=== PATIENT | male | born 1975 | race Caucasian/White ===

== ENCOUNTER 2025-07-29 03:18 | Observation (INO) ==
[2025-07-29] MEDS ORDERED: chlordiazePOXIDE ALCOHOL WITHDRAWL 50MG PO STA (03:32)
--- NOTE | 2025-07-29 03:37 | Emergency Department Note ---
History of Present Illness General Chief complaint: Alcohol Withdrawal Stated complaint: QUIT DRINKING, ALCOHOL WITHDRAWAL Time Seen by Provider: 07/29/25 03:22 History of Present Illness This 49-year-old male with history of alcoholism presents ER requesting detox. Patient complains of feeling shaky cannot sleep mood changes and diarrhea. He would like to be medically admitted. Sprio has worked well for him in the past. He did restart his AA meetings. Last drink was on the . Patient denies chest pain, dyspnea, abdominal pain. Home Medications Medication Instructions Recorded Confirmed Type aripiprazole 2 mg tablet 2 mg PO QAM 10/12/18 05/06/19 History desvenlafaxine succinate 100 mg 100 mg PO QAM 10/12/18 05/06/19 History tablet,extended release 24 hr hydroxyzine pamoate 25 mg capsule 25 mg PO BID PRN Anxiety 10/12/18 05/06/19 History mirtazapine 15 mg tablet 15 mg PO BID PRN Anxiety 10/12/18 05/06/19 History pantoprazole 40 mg tablet,delayed 40 mg PO QAM 10/12/18 05/06/19 History release chlordiazepoxide HCl 25 mg capsule See Rx Instructions .Route 05/06/19 Rx .COMPLEX PRN anxiety #20 caps Allergies Allergy/AdvReac Type Severity Reaction Status Date / Time No Known Allergies Allergy Unverified 05/06/19 03:55 Past Med/Surg History Problem List Alcohol withdrawal (Acute) Alcohol abuse (Acute) Medical History (Updated 07/29/25 @ 03:37 by Yumi Woodall PA-C) Barretts esophagus GERD (gastroesophageal reflux disease) Depression Anxiety Asthma childhood, no issues now Alcoholism Surgical History History of surgery fistulotomy Hx of vasectomy History of left inguinal hernia repair History of esophagogastroduodenoscopy (EGD) History of wisdom tooth extraction Family History Grandfather (Maternal) No problems noted. Grandfather (Paternal) Lung cancer Myocardial infarction Hypertension Heart disease Other No family history of adverse response to anesthesia Denies family history of Ovarian cancer Prostate cancer Diabetes Breast cancer Colorectal cancer Stroke Social History Smoking Status: Current every day smoker Tobacco Type: Cigarettes Age Started Using Tobacco: 15; packs per day: 1; Cigarettes Per Day: 20 a day; Second Hand Exposure: Yes (father smoked, smokes); Do You Dip or Chew Tobacco: No; Hx Alcohol Use: No Hx Substance Use: No Preferred Language: Vietnamese Communication Ability: Effective Visual Impairment: No Limitations Hearing Ability: Normal Web Art Director Required: No Beliefs That Will Affect Care: None marital status: Current Living Situation: Spouse current occupational status: employed current occupation: [employer] Feels Safe at Home: Yes Childhood Exposure to Second-Hand Smoke: Yes Assistive Devices: None Review of Systems A total of 10 systems reviewed and were otherwise negative Physical Exam Vital Signs Vital Signs - 24 hr 07/29/25 03:26 07/29/25 03:39 07/29/25 03:42 Temperature 36.5 C Temperature Source Temporal Artery Scan Pulse Rate 118 H 110 H Pulse Rate [Apical] 108 H Pulse Rhythm Pulse Rhythm [Apical] Regular Pulse Strength [Apical] Normal Respiratory Rate 18 18 Respiratory Effort / Characteristics Non-Labored Non-Labored Spontaneous Respiratory Depth Normal Normal Respiratory Pattern Regular Blood Pressure 167/99 H Blood Pressure [Left Arm] 147/98 H Blood Pressure Mean 121 Blood Pressure Mean [Left Arm] 114 Pulse Oximetry 97 98 Oxygen Delivery Method Room Air Room Air Sepsis Recent Fever Within 48 Hours No Sepsis New/Unexplained Change in Mental Status No Sepsis Action Taken by Nursing No Action Required 07/29/25 03:42 Temperature Temperature Source Pulse Rate 108 H Pulse Rate [Apical] Pulse Rhythm Regular Pulse Rhythm [Apical] Pulse Strength [Apical] Respiratory Rate 18 Respiratory Effort / Characteristics Respiratory Depth Respiratory Pattern Blood Pressure Blood Pressure [Left Arm] Blood Pressure Mean Blood Pressure Mean [Left Arm] Pulse Oximetry 98 Oxygen Delivery Method Room Air Sepsis Recent Fever Within 48 Hours Sepsis New/Unexplained Change in Mental Status Sepsis Action Taken by Nursing VITALS: Vitals are noted on the nurse's note and reviewed by myself. Vital signs stable. GENERAL: Pleasant gentleman mildly tremulous, in no acute distress, nondiaphoretic, well-developed well-nourished. SKIN: Capillary reflex less than 2 seconds. HEENT: Normocephalic. PERRLA. EOMI. Nares patent. Mucous membranes moist. Neck is supple without nuchal rigidity. HEART: Mildly tachycardic rate and rhythm LUNGS: Clear to auscultation bilaterally without wheezes, rales or rhonchi. No retractions or accessory muscle use. ABDOMEN: Positive bowel sounds x 4. Normal tympanic percussion. Soft, nontender, without masses or organomegaly. Dawson sign negative. No guarding or rebound tenderness. no CVA tenderness MUSCULOSKELETAL: No gross musculoskeletal defects. NEURO: Patient was alert and oriented to person place and time. No focal neurological deficits. Course Administered Medications Chlordiazepoxide HCl (Chlordiazepoxide Hcl 25 Mg Cap) 50 mg PO Q6H [facility]; Protocol Stop: 07/29/25 21:46 Last Admin: 07/29/25 03:47 Dose: 50 mg Documented By: CLAUDIO Discontinued Medications Lactated Ringer's (Lr) 1,000 mls @ 999 mls/hr IV .Q1H1M ONE Stop: 07/29/25 04:32 Last Infusion: 07/29/25 04:29 Dose: Infused Documented By: Admin: 07/29/25 03:47 Dose: 999 mls/hr Documented By: CLAUDIO Thiamine HCl 100 mg/ Syringe 10 mls @ 2 mls/min IV NOW STA Stop: 07/29/25 03:42 Last Admin: 07/29/25 04:19 Dose: 2 mls/min Documented By: CLAUDIO Folic Acid 1 mg/ Syringe 10 mls @ 5 mls/min IV NOW STA Stop: 07/29/25 03:39 Last Admin: 07/29/25 04:19 Dose: 5 mls/min Documented By: CLAUDIO Multivitamins (Multivitamin Tab) 1 tab PO NOW STA Stop: 07/29/25 03:39 Last Admin: 07/29/25 04:18 Dose: 1 tab Documented By: CLAUDIO Medical Decision Making Medical Records Attestation: I reviewed the patient's medical records. Home Medications Current Medication List: was personally reviewed by me Laboratory Data Attestation: I reviewed the patient's lab results. 07/29/25 03:38 07/29/25 03:38 Lab Results 07/29/25 Range/Units 03:38 WBC 11.18 H (4.8-10.8) K/ul RBC 5.45 (4.70-6.10) M/uL Hgb 16.1 (14.0-18.0) g/dL Hct 46.6 (42.0-52.0) % MCV 85.5 (80.0-100.0) fL MCH 29.5 (25.0-34.0) pg MCHC 34.5 (32.0-36.0) g/dL RDW Std Deviation 39.4 (36.4-46.3) fL RDW Coeff of Jeremi 12.9 (11.5-14.5) % Plt Count 276 (130-400) K/uL MPV 9.3 L (9.4-12.4) fL Immature Gran % (Auto) 0.6 % Neut % (Auto) 75.5 % Lymph % (Auto) 16.7 % [place] % (Auto) 6.0 % Eos % (Auto) 0.8 % Baso % (Auto) 0.4 % Neut # (Auto) 8.44 H (1.40-6.50) K/uL Lymph # (Auto) 1.87 (1.20-3.40) K/uL [place] # (Auto) 0.67 H (0.11-0.59) K/uL Eos # (Auto) 0.09 (0.00-0.50) K/uL Baso # (Auto) 0.04 (0.00-0.20) K/uL Immature Gran # (Auto) 0.07 (0.01-0.20) K/uL PT 10.5 (9.0-12.0) Seconds INR 1.0 (0.9-1.1) APTT 29 (21-31) Seconds PTT Ratio 1.1 Sodium 137 (136-145) mmol/L Potassium 3.6 (3.5-5.1) mmol/L Chloride 100 (98-107) mmol/L Carbon Dioxide 27 (21-32) mmol/L Anion Gap 10 (3-11) BUN 12 (6-23) mg/dl Creatinine 0.95 (0.6-1.4) mg/dl Est Cr Clr Drug Dosing 117.0 ml/min eGFR 98.12 BUN/Creatinine Ratio 12.6 (10-20) Glucose 126 H (70-99(Fasting)) mg/dl Calcium 9.5 (8.6-10.3) mg/dl Magnesium 2.6 H (1.7-2.4) mg/dl Total Bilirubin 0.8 (0.2-1.0) mg/dl AST 23 (13-39) U/L ALT 22 (7-52) U/L Alkaline Phosphatase 77 (34-104) U/L Total Creatine Kinase 245 H (30-223) U/L Troponin I High Sens 4.1 (0-20) pg/ml Total Protein 7.3 (6.0-8.3) gm/dl Albumin 4.5 (3.4-5.0) gm/dl Globulin 2.8 (2.5-4.0) gm/dl Albumin/Globulin Ratio 1.6 (0.9-2) TSH 1.232 (0.300-4.500) uIu/ml Ethyl Alcohol mg/dL < 10.0 (<10.0) mg/dl Imaging Data Attestation: I personally reviewed and interpreted this imaging study as follows: Radiologist's Impression: Chest X-Ray 07/29/25 03:32 EXAM: XR chest 1V portable CLINICAL HISTORY: weakness TECHNIQUE: An X-ray image of the chest is obtained in AP projection. COMPARISON: No prior studies are available for comparison. FINDINGS: prior 09/22/2024 CR Pulmonary Parenchyma: No evidence of consolidation, collapse, or focal opacities. No pulmonary nodules are identified. No evidence of pleural effusion or pleural thickening. Heart and Mediastinum: Heart size and shape are normal. No mediastinal widening or masses. No hilar or mediastinal lymphadenopathy. Chest leads are applied. Bony Thorax: Bony thorax appears intact without fractures or deformities. Soft Tissues: Soft tissues overlying the chest wall are unremarkable. IMPRESSION: 1. No acute cardiopulmonary abnormalities are identified. 2. No significant interval changes. Electronically signed by Ranjeet Pollard 07-29-2025 05:08 AM MDM Narrative prior records/ancillary studies reviewed and summarized above. Nursing notes reviewed. Additional history obtained from family. The patient's history was concerning for alcohol withdrawal. Differential diagnosis: Etiologies such as alcohol withdrawal, metabolic, infection, hypo/hyperglycemia, electrolyte abnormalities, cardiac sources, intracerebral event, toxicologic, neurologic, as well as others were entertained. Physical examination: As above. ER treatment provided: IV Lock An order was placed for continuous cardiac monitoring. The monitor shows a rate of 60-1 20 with a sinus rhythm per my interpretation. IV fluids, vitamins, Librium On reassessment the patient felt better. Diagnostics interpretation by me: ECG: Ordered for shakiness EKG: Normal sinus, normal intervals, no acute ST-T wave changes, rate of 107. Impression sinus tachycardia independent interpreted by myself The labs Independently Interpreted by myself revealed mild leukocytosis, stable H&H Glucose 126, negative alcohol, negative troponin nl coags Imaging studies: Imaging was reviewed and read by radiology Consultation: A consultation was placed with the hospitalist. The case was discussed and diagnostics were reviewed. The patient was evaluated in the ER for further treatment. Exam and history seem consistent with alcohol withdrawal. Patient is requesting admission. Medicine was consulted and the case discussed. He will be evaluated for admission. Patient was medicated as above. Vital signs improved. By the evaluation outlined above emergent etiologies such as infection, electrolyte abnormalities, cardiac sources, intracerebral event, neurologic, abnormalities blood glucose, metabolic, as well as others were deemed relatively unlikely. The pt informed about the findings as listed above. All questions were answered and pleased with the treatment. The chart was completed utilizing [employer] Speech voice recognition software. Grammatical errors, random word insertions, pronoun errors, and incomplete sentences are an occassional consequence of this system due to software limitations, ambient noise, and hardware issues. Any formal questions or concerns about the content, text, or information contained within the body of this dictation should be directly addressed to the physician event sales assistant for clarification. Impression & Plan Alcohol abuse, Alcohol withdrawal Discharge Plan Visit Data Chief Complaint: Alcohol Withdrawal Stated Complaint: QUIT DRINKING, ALCOHOL WITHDRAWAL ED Provider: Michael Yin ED Midlevel Provider: Yumi Woodall Discharge Problem: Alcohol abuse, Alcohol withdrawal Patient Disposition: Admitted As Inpatient Condition: Fair Forms Stand Alone Forms: [facility], Suicide Prevention Resources Prescriptions Prescriptions: No Action pantoprazole 40 mg Tablet,Delayed Release (Dr/Ec) 40 mg PO QAM mirtazapine 15 mg tablet 15 mg PO BID PRN (Reason: Anxiety) hydroxyzine pamoate 25 mg capsule 25 mg PO BID PRN (Reason: Anxiety) aripiprazole 2 mg tablet 2 mg PO QAM desvenlafaxine succinate 100 mg tablet extended release 24 hr 100 mg PO QAM chlordiazepoxide HCl 25 mg capsule See Rx Instructions .ROUTE .COMPLEX PRN (Reason: anxiety) Qty: 20 0RF Rx Instructions: 1-2 tabs q6h prn for withdrawal symptoms of alcohol Referrals Referrals: Ayana Pollock MD [Outside Practitioners] -
[2025-07-29] MEDS: LACTATED RINGER'S 1,000 ML IV ONE (03:47)
[2025-07-29 04:02] LABS: Hematocrit (blood only) 46.6 % (42.0-52.0); Hemoglobin 16.1 g/dL (14.0-18.0); Immature Granulocytes # (auto) 0.07 K/uL (0.01-0.20); Immature Granulocytes % (auto) 0.6 %; Mean Corpuscular Hemoglobin 29.5 pg (25.0-34.0); Mean Corpuscular Volume 85.5 fL (80.0-100.0); Platelet Count 276 K/uL (130-400); RDW Standard Deviation 39.4 fL (36.4-46.3); Red Blood Count 5.45 M/uL (4.70-6.10); White Blood Count 11.18 K/ul (4.8-10.8)
[2025-07-29] MEDS: MULTIVITAMIN TAB PO STA (04:18)
[2025-07-29] MEDS: FOLIC ACID 1 MG in SYRINGE 9.8 ML IV STA (04:19)
[2025-07-29] MEDS: THIAMINE HCL 100 MG in SYRINGE 9 ML IV STA (04:19)
[2025-07-29 04:28] LABS: Alanine Aminotransferase 22.0 U/L (7-52); Albumin Globulin Ratio 1.6 (0.9-2); Albumin Level 4.5 gm/dl (3.4-5.0); Alkaline Phosphatase 77.0 U/L (34-104); Anion Gap 10.0 (3-11); Bilirubin,Total 0.8 mg/dl (0.2-1.0); Blood Urea Nitrogen 12.0 mg/dl (6-23); Calcium 9.5 mg/dl (8.6-10.3); Carbon Dioxide 27.0 mmol/L (21-32); Chloride 100.0 mmol/L (98-107); Creatine Kinase 245.0 U/L (30-223); Creatinine Clr Calc Pharmacy 117.0 ml/min; Globulin 2.8 gm/dl (2.5-4.0); Glucose 126.0 mg/dl (70-99(Fasting)); Magnesium 2.6 mg/dl (1.7-2.4); Potassium 3.6 mmol/L (3.5-5.1); Sodium 137.0 mmol/L (136-145); Total Protein 7.3 gm/dl (6.0-8.3)
[2025-07-29 04:34] LABS: Thyroid Stimulating Hormone 1.232 uIu/ml (0.300-4.500)
[2025-07-29 04:35] LABS: INR 1.0 (0.9-1.1); Partial Thromboplastin Time 29 Seconds (21-31); Prothrombin Time 10.5 Seconds (9.0-12.0)
--- NOTE | 2025-07-29 05:09 | XRay Report ---
EXAM: XR chest 1V portable CLINICAL HISTORY: weakness TECHNIQUE: An X-ray image of the chest is obtained in AP projection. COMPARISON: No prior studies are available for comparison. FINDINGS: prior 09/22/2024 CR Pulmonary Parenchyma: No evidence of consolidation, collapse, or focal opacities. No pulmonary nodules are identified. No evidence of pleural effusion or pleural thickening. Heart and Mediastinum: Heart size and shape are normal. No mediastinal widening or masses. No hilar or mediastinal lymphadenopathy. Chest leads are applied. Bony Thorax: Bony thorax appears intact without fractures or deformities. Soft Tissues: Soft tissues overlying the chest wall are unremarkable. IMPRESSION: 1. No acute cardiopulmonary abnormalities are identified. 2. No significant interval changes. Electronically signed by Ranjeet Pollard 07-29-2025 05:08 AM
--- NOTE | 2025-07-29 05:16 | History & Physical Report ---
Date of Service July 29, 2025 Assessment & Plan (1) Alcohol abuse: Plan: 49-year-old male with past med history significant for prediabetes, recurrent major depression, tobacco use disorder, general anxiety disorder, PTSD comes for alcohol detox request. Patient says he used to drink alcohol in the past but he was in rehab in 2019 and stopped drinking since then. He was sober for last 6 years. 3 months ago again he started drinking. Lately he is drinking 10-15 beers daily. Last drink was on July 23, 2025. Says he had alcohol withdrawal symptoms in the past. Came to the hospital for alcohol detox. Currently resting comfortably. No shaking is seen. Denies any headache. No runny nose or sore throat but has some smoker's cough. Denies chest pain or shortness of breath. No nausea. No abdominal pain. Normal bowel and bladder movements. Resting comfortably.In September 2024 patient found to have right leg DVT after injury to the knee and completed 3 months of Eliquis as per patient Alcohol abuse Request for detox History of alcohol withdrawal Placed on Librium withdrawal protocol IV thiamine, IV folic acid vitamins Patient concerned about his liver. Will get ultrasound Close monitor in med/tele Depression Generalized anxiety disorder PTSD Continue home medications Tobacco abuse Counseling Prediabetes will follow hba1c levels DVT prophylaxis Lovenox Disposition Med/telemetry Full code. History of Present Illness Chief Complaint: Request for alcohol detox Primary Care Provider: Love Jaramillo DO 49-year-old male with past med history significant for prediabetes, recurrent major depression, tobacco use disorder, general anxiety disorder, PTSD comes for alcohol detox request. Patient says he used to drink alcohol in the past but he was in rehab in 2019 and stopped drinking since then. He was sober for last 6 years. 3 months ago again he started drinking. Lately he is drinking 10-15 beers daily. Last drink was on July 23, 2025. Says he had alcohol withdrawal symptoms in the past. Came to the hospital for alcohol detox. Currently resting comfortably. No shaking is seen. Denies any headache. No runny nose or sore throat but has some smoker's cough. Denies chest pain or shortness of breath. No nausea. No abdominal pain. Normal bowel and bladder movements. Resting comfortably.In September 2024 patient found to have right leg DVT after injury to the knee and completed 3 months of Eliquis as per patient. Past medical history. As mentioned above. Past surgical history. Dental surgery. EGD. Removal of anal fistula. Repair of inguinal hernia. Social history. . Smokes 1 pack a day for 30 years. Currently drinking alcohol 10 to 15 pills daily. Lately smoking marijuana once in a while. Family history. Mother has anxiety disorder. Depression. Father has pulmonary embolism, A-fib and alcoholic in recovery. Sister has depression. Sister has anxiety disorder. Maternal grandmother had breast cancer. Parkinsonism. Maternal grandfather had stomach cancer. Allergies Allergy/AdvReac Type Severity Reaction Status Date / Time No Known Allergies Allergy Unverified 05/06/19 03:55 Home Medications Medication Instructions Recorded Confirmed Type aripiprazole 2 mg tablet 2 mg PO DAILY 07/29/25 07/29/25 History desvenlafaxine succinate 100 mg 100 mg PO DAILY 07/29/25 07/29/25 History tablet,extended release 24 hr mirtazapine 7.5 mg tablet 7.5 mg PO HS 07/29/25 07/29/25 History Past Med/Surg History Problem List Alcohol withdrawal (Acute) Alcohol abuse (Acute) Medical History (Updated 07/29/25 @ 03:37 by Yumi Woodall PA-C) Barretts esophagus GERD (gastroesophageal reflux disease) Depression Anxiety Asthma childhood, no issues now Alcoholism Surgical History History of surgery fistulotomy Hx of vasectomy History of left inguinal hernia repair History of esophagogastroduodenoscopy (EGD) History of wisdom tooth extraction Family History Grandfather (Maternal) No problems noted. Grandfather (Paternal) Lung cancer Myocardial infarction Hypertension Heart disease Other No family history of adverse response to anesthesia Denies family history of Ovarian cancer Prostate cancer Diabetes Breast cancer Colorectal cancer Stroke Social History Smoking Status: Current every day smoker Tobacco Type: Cigarettes Age Started Using Tobacco: 15; packs per day: 1; Cigarettes Per Day: 20 a day; Second Hand Exposure: Yes (father smoked, smokes); Do You Dip or Chew Tobacco: No; Hx Alcohol Use: No Hx Substance Use: No Preferred Language: Macedonian Communication Ability: Effective Visual Impairment: No Limitations Hearing Ability: Normal Bead Builder Required: No Beliefs That Will Affect Care: None marital status: Current Living Situation: Spouse current occupational status: employed current occupation: [employer] Feels Safe at Home: Yes Childhood Exposure to Second-Hand Smoke: Yes Assistive Devices: None Review of Systems Review of Systems: All systems reviewed & are unremarkable except as noted in HPI & below Physical Exam Physical Exam: General- Not in distress. Head- atraumatic Eyes- PERRL. ENT- oropharynx clear Neck- supple, no JVD. Lungs- clear to auscultation no wheezing or crackles Heart- regular rhythm; no murmur, no gallop. Abdomen- normal bowel sounds, soft, nontender, no distension Extremities- no pretibial edema, no erythema seen Neuro- alert, oriented PERRL, no facial palsy; no dysarthria; moves extremities Results & Data Results & Data Vital Signs (Past 12 Hours) Vital Signs Temp Pulse Pulse Resp BP BP Pulse Ox 07/29/25 03:42 108 H 18 98 07/29/25 03:42 108 H 18 147/98 H 98 07/29/25 03:39 110 H 07/29/25 03:26 36.5 C 118 H 18 167/99 H 97 O2 Del Method 07/29/25 03:42 Room Air 07/29/25 03:42 Room Air 07/29/25 03:39 07/29/25 03:26 Room Air Diagnostic Findings Laboratory Results WBC 11.18 K/ul (4.8-10.8) H 07/29/25 03:38 RBC 5.45 M/uL (4.70-6.10) 07/29/25 03:38 Hgb 16.1 g/dL (14.0-18.0) 07/29/25 03:38 Hct 46.6 % (42.0-52.0) 07/29/25 03:38 MCV 85.5 fL (80.0-100.0) 07/29/25 03:38 MCH 29.5 pg (25.0-34.0) 07/29/25 03:38 MCHC 34.5 g/dL (32.0-36.0) 07/29/25 03:38 RDW Std Deviation 39.4 fL (36.4-46.3) 07/29/25 03:38 RDW Coeff of Jeremi 12.9 % (11.5-14.5) 07/29/25 03:38 Plt Count 276 K/uL (130-400) 07/29/25 03:38 MPV 9.3 fL (9.4-12.4) L 07/29/25 03:38 Immature Gran % (Auto) 0.6 % 07/29/25 03:38 Neut % (Auto) 75.5 % 07/29/25 03:38 Lymph % (Auto) 16.7 % 07/29/25 03:38 [place] % (Auto) 6.0 % 07/29/25 03:38 Eos % (Auto) 0.8 % 07/29/25 03:38 Baso % (Auto) 0.4 % 07/29/25 03:38 Neut # (Auto) 8.44 K/uL (1.40-6.50) H 07/29/25 03:38 Lymph # (Auto) 1.87 K/uL (1.20-3.40) 07/29/25 03:38 [place] # (Auto) 0.67 K/uL (0.11-0.59) H 07/29/25 03:38 Eos # (Auto) 0.09 K/uL (0.00-0.50) 07/29/25 03:38 Baso # (Auto) 0.04 K/uL (0.00-0.20) 07/29/25 03:38 Immature Gran # (Auto) 0.07 K/uL (0.01-0.20) 07/29/25 03:38 PT 10.5 Seconds (9.0-12.0) 07/29/25 03:38 INR 1.0 (0.9-1.1) 07/29/25 03:38 APTT 29 Seconds (21-31) 07/29/25 03:38 PTT Ratio 1.1 07/29/25 03:38 Sodium 137 mmol/L (136-145) 07/29/25 03:38 Potassium 3.6 mmol/L (3.5-5.1) 07/29/25 03:38 Chloride 100 mmol/L (98-107) 07/29/25 03:38 Carbon Dioxide 27 mmol/L (21-32) 07/29/25 03:38 Anion Gap 10 (3-11) 07/29/25 03:38 BUN 12 mg/dl (6-23) 07/29/25 03:38 Creatinine 0.95 mg/dl (0.6-1.4) 07/29/25 03:38 Est Cr Clr Drug Dosing 117.0 ml/min 07/29/25 03:38 eGFR 98.12 07/29/25 03:38 BUN/Creatinine Ratio 12.6 (10-20) 07/29/25 03:38 Glucose 126 mg/dl (70-99(Fasting)) H 07/29/25 03:38 Calcium 9.5 mg/dl (8.6-10.3) 07/29/25 03:38 Magnesium 2.6 mg/dl (1.7-2.4) H 07/29/25 03:38 Total Bilirubin 0.8 mg/dl (0.2-1.0) 07/29/25 03:38 AST 23 U/L (13-39) 07/29/25 03:38 ALT 22 U/L (7-52) 07/29/25 03:38 Alkaline Phosphatase 77 U/L (34-104) 07/29/25 03:38 Total Creatine Kinase 245 U/L (30-223) H 07/29/25 03:38 Troponin I High Sens 4.1 pg/ml (0-20) 07/29/25 03:38 Total Protein 7.3 gm/dl (6.0-8.3) 07/29/25 03:38 Albumin 4.5 gm/dl (3.4-5.0) 07/29/25 03:38 Globulin 2.8 gm/dl (2.5-4.0) 07/29/25 03:38 Albumin/Globulin Ratio 1.6 (0.9-2) 07/29/25 03:38 TSH 1.232 uIu/ml (0.300-4.500) 07/29/25 03:38 Ethyl Alcohol mg/dL < 10.0 mg/dl (<10.0) 07/29/25 03:38 Impressions Chest X-Ray 07/29/25 03:32 EXAM: XR chest 1V portable CLINICAL HISTORY: weakness TECHNIQUE: An X-ray image of the chest is obtained in AP projection. COMPARISON: No prior studies are available for comparison. FINDINGS: prior 09/22/2024 CR Pulmonary Parenchyma: No evidence of consolidation, collapse, or focal opacities. No pulmonary nodules are identified. No evidence of pleural effusion or pleural thickening. Heart and Mediastinum: Heart size and shape are normal. No mediastinal widening or masses. No hilar or mediastinal lymphadenopathy. Chest leads are applied. Bony Thorax: Bony thorax appears intact without fractures or deformities. Soft Tissues: Soft tissues overlying the chest wall are unremarkable. IMPRESSION: 1. No acute cardiopulmonary abnormalities are identified. 2. No significant interval changes. Electronically signed by Ranjeet Pollard 07-29-2025 05:08 AM ECG Additional Comments: ECG. Sinus tachycardia with fusion complexes rate 107. QTc 448 Code Status & VTE Plan VTE Prophylaxis Plan VTE Prophylaxis will be ordered: Yes
[2025-07-29 05:38] LABS: Appearance Urine Clear (Clear); Glucose Urine UA Negative (Negative)
[2025-07-29 06:06] LABS: Amphetamines+Metham, Urine Neg (Neg); MDMA (Ecstacy), Urine Neg (Neg); Marijuana, Urine Neg (Neg)
[2025-07-29] MEDS ORDERED: NITROGLYCERIN SL 0.4 MG/TAB TAB SL PRN (06:36)
[2025-07-29] MEDS ORDERED: ACETAMINOPHEN 325 MG TAB PO PRN (06:36)
[2025-07-29] MEDS: ENOXAPARIN INJ 40 MG/0.4 ML SYR SQ SCH (08:21)
[2025-07-29] MEDS: LACTATED RINGER'S 1,000 ML IV SCH (08:21)
[2025-07-29] MEDS: FOLIC ACID 1 MG in SYRINGE 9.8 ML IV SCH (09:43)
[2025-07-29] MEDS: THIAMINE HCL 100 MG in SYRINGE 9 ML IV SCH (09:43)
[2025-07-29] MEDS: CEROVITE ADV FORMULA TAB PO SCH (11:16)
[2025-07-29 11:49] VITALS: BP 131/85; RESP 18; TEMP 98.1; O2SAT 96
--- NOTE | 2025-07-29 14:00 | Ultrasound Report ---
US liver CLINICAL HISTORY: alcoholism COMPARISON STUDY: 01/02/2015 FINDINGS: Pancreas is not well seen due to overlying bowel gas artifact. Liver demonstrates severe di ffusely increased echogenicity consistent with fatty liver. Deep portion of the liver is not well see n. Liver measures approximately 17 cm. There is normal direction of flow in the portal vein. Common b ile duct measures normal diameter of 4 mm. Gallbladder is unremarkable with no gallstones or gallblad wilder wall thickening. No pericholecystic fluid or ascites. Right kidney shows no hydronephrosis. IMPRESSION: 1. Severe fatty liver. No ascites. 2. No gallstones or cholecystitis. ACT 112: Negative or not required by law. Electronically signed by: Lv Bacon M.D. 07/29/2025 1:58 PM
--- NOTE | 2025-07-29 14:16 | Discharge Summary ---
Discharge Summary Date of Service July 29, 2025 Principal Dx & Hospital Course #1 = Principal Diagnosis (1) Alcohol abuse: 49-year-old male with past med history significant for prediabetes, recurrent major depression, tobacco use disorder, general anxiety disorder, PTSD comes for alcohol detox request. Patient says he used to drink alcohol in the past but he was in rehab in 2019 and stopped drinking since then. He was sober for last 6 years. 3 months ago again he started drinking. Lately he is drinking 10-15 beers daily. Last drink was on July 23, 2025. He was admitted for concern of alcohol withdrawal. he denies any withdrawal symptoms at this time. Today is day 6 of not drinking alcohol, therefore he is extremely unlikely to go through withdrawal at this point. Labs are benign. Vitals stable. US liver showing fatty liver. Risks of continued alcohol use were discussed with patient. Patient seen again this afternoon. He continues to feel well. he wished to go home today Notes For Next Care Provider Medication Changes From Visit none Admission HPI Per Admitting Provider 49-year-old male with past med history significant for prediabetes, recurrent major depression, tobacco use disorder, general anxiety disorder, PTSD comes for alcohol detox request. Patient says he used to drink alcohol in the past but he was in rehab in 2019 and stopped drinking since then. He was sober for last 6 years. 3 months ago again he started drinking. Lately he is drinking 10-15 beers daily. Last drink was on July 23, 2025. Says he had alcohol withdrawal symptoms in the past. Came to the hospital for alcohol detox. Currently resting comfortably. No shaking is seen. Denies any headache. No runny nose or sore throat but has some smoker's cough. Denies chest pain or shortness of breath. No nausea. No abdominal pain. Normal bowel and bladder movements. Resting comfortably.In September 2024 patient found to have right leg DVT after injury to the knee and completed 3 months of Eliquis as per patient. Past medical history. As mentioned above. Past surgical history. Dental surgery. EGD. Removal of anal fistula. Repair of inguinal hernia. Social history. . Smokes 1 pack a day for 30 years. Currently drinking alcohol 10 to 15 pills daily. Lately smoking marijuana once in a while. Family history. Mother has anxiety disorder. Depression. Father has pulmonary embolism, A-fib and alcoholic in recovery. Sister has depression. Sister has a nxiety disorder. Maternal grandmother had breast cancer. Parkinsonism. Maternal grandfather had stomach cancer. Discharge Exam Vitals and labs reviewed General: Well appearing, NAD HEENT: EOMI, PERRLA Neck: Supple Cardiac: RRR no rubs gallops or murmurs Lungs: CTA no rhonchi wheezing or rales Abd: S NT ND BS positive : Deffered MSK: Full ROM. No obvious deformities Ext: No Edema cyanosis Skin: Warm, Dry Neuro: AOx3 No focal deficits. no tremors or asterixis Psych: Normal Mood Updated Medication List Medication Instructions Recorded Confirmed Type aripiprazole 2 mg tablet 2 mg PO DAILY 07/29/25 07/29/25 History desvenlafaxine succinate 100 mg 100 mg PO DAILY 07/29/25 07/29/25 History tablet,extended release 24 hr mirtazapine 7.5 mg tablet 7.5 mg PO HS 07/29/25 07/29/25 History Hospital Stay Data Consultations 07/29/25 04:31 ED Decision to Admit Stat Diagnostic Imagining Performed 07/29/25 08:16 US liver Routine Pending Results Patient Have Any Pending Studies at Discharge: No Discharge Instructions Given to Patient (Per Discharging Provider) Please continue to abstain from drinking alcohol. Work on your diet and exercise Total Time Total Time Spent Total Time Spent (In Minutes): 40
[2025-07-29] MEDS: INFLUENZA VACC TS2025-26(6m+)/PF (IIV3) 0.5mL Syr IM ONE (14:53)
[2025-07-29 15:15] VITALS: PULSE 86
[2025-07-29] MEDS ORDERED: MIRTAZAPINE TAB 15 MG TAB PO SCH (21:00)
--- NOTE | 2025-07-30 20:51 | Electrocardiogram Report ---
Test Reason : Blood Pressure : */* mmHG Vent. Rate : 107 BPM Atrial Rate : 107 BPM P-R Int : 136 ms QRS Dur : 78 ms QT Int : 336 ms P-R-T Axes : 79 28 65 degrees QTcB Int : 448 ms Sinus tachycardia Otherwise normal ECG When compared with ECG [id number] 14:12, Nonspecific T wave abnormality no longer evident inLateral leads Confirmed by Rylee Pittman (Donna) on 07/30/2025 8:51:35 PM Referred By: REFERRED SELF Confirmed By: Rylee Pittman
== END 2025-07-29 15:15 | disposition home or self-care (01) | DRG 897 ==
LOC: ED 03:18 → EDINP 05:11 → INTOOBSV 05:11 → SUATTDRO 05:11 → 2N 06:36